=== PATIENT | male | born 1945 | race Caucasian/White ===

== ENCOUNTER → 2017-04-20 | Outpatient (CLI) | payer OTHER ==
[~2017-04-20] MED LIST: ASPIR 8181 MG PO; CO Q-10100 MG PO; FOLIC ACID 40400 MCG PO; LISINOPRIL20 MG PO; ZOCOR40 MG PO
== END ==
LOC: MRI 12:27
DX: M75.101 Unspecified rotator cuff tear or rupture of right shoulder, not specified as traumatic (principal)

== ENCOUNTER 2017-07-05 05:16 | Day surgery (SDC) | payer OTHER ==
[~2017-07-05] VITALS: Ht 182.9 cm; Wt 105.7 kg
--- NOTE | ~2017-07-05 | O ---
[facility] [place] [address] OPERATIVE REPORT Name: PEDRO FONSECA Room #: DEP [facility]#: [id number] Admission: 07/05/17 Attend Phys: Isacc Del Rio MD Discharge: 07/05/17 Date of : 49 Report #: [id number] THIS REPORT FOR: //name// CC: Isacc Tabor DATE OF SERVICE: 07/05/2017 PREOPERATIVE DIAGNOSIS: Left inguinal hernia. POSTOPERATIVE DIAGNOSES: Left indirect inguinal hernia and skin tag, left eye, right upper thigh. PROCEDURES PERFORMED: Laparoscopic properitoneal repair of left inguinal hernia with mesh and excision of skin tag, left eyelid and right thigh. ANESTHESIA: General. SURGEON: Isacc Del Rio M.D. COMPLICATIONS: None. ESTIMATED BLOOD LOSS: 5 mL. DESCRIPTION OF PROCEDURE: With the patient under general anesthesia, IV antibiotic was administered. Regalado catheter was placed. Abdomen was prepped and draped in a sterile fashion. Timeout was performed. A 0.25% Marcaine was used to anesthetize the skin left side of the umbilicus. Transverse incision was made about 2 cm. The anterior rectus sheath was identified. This was incised transversely, muscle was spread. The posterior sheath was then identified. Space between the rectus muscle and the posterior sheath was dissected using finger dissection inferiorly. Origin balloon trocar was placed through the same space. The balloon was inflated keeping the trocar in place, CO2 was administered. A 5 mm trocar was placed about 2 inches below the umbilicus under visualization into the properitoneal space. The properitoneal space was then opened up. After the anterior wall was isolated and freed, a second 5 mm trocar was placed about 2 inches below the first 5 mm trocar, slightly medial. Properitoneal space was then opened up. The inferior epigastric vessel was identified and preserved from harm. This was lifted anteriorly, the cord structures identified. The lateral wall was also opened up. An indirect hernia sac was found. No direct defect identified. The indirect hernia sac was freed without difficulty from the underlying cord and then reduced out of the canal back into the properitoneal space. The hernia sac was free from the cord all the way posteriorly. The cord structure was isolated. A small cord lipoma was also brought back in. A large size light-weight 3DMax mesh was used. This was placed in the properitoneal space, [address] [address] OPERATIVE REPORT Name: PEDRO FONSECA Room #: DEP [facility].#: [id number] Admission: 07/05/17 Attend Phys: Isacc Del Rio MD Discharge: 07/05/17 Date of : 49 Report #: [id number] opened up well. It was noted that the internal ring is fairly dilated and weakened. The mesh was placed and I moved the mesh slightly more lateral to make sure the internal ring as well support it as there was no direct defect. Mesh was tacked laterally with SorbaFix to the abdominal wall. Mesh was tacked inferiorly, inferomedially to the Delmer ligament above pubic bone. The mesh was also tacked superomedially to the rectus muscle. Mesh was held well. CO2 was evacuated. Trocars were removed. There was some intraperitoneal air that was identified. A 5 mm trocar was placed in the posterior sheath at the umbilical level under visualization with a 5 mm scope placed inside the trocar. No harm to underlying tissue. CO2 was evacuated. The anterior rectus sheath fascia defect was closed with 0 Vicryl [id number] x 2. Skin at the trocar site was closed with 5-0 PDS. Steri-Strip, Band-Aids applied. The eye skin tag was then prepped with alcohol wipe, anesthetized with 1% lidocaine with epinephrine. This was then cauterized at the base. This was discarded. Antibiotic ointment was placed over this area. The right upper thigh skin tag was also cleaned with alcohol, anesthetized with the 1% lidocaine with epinephrine. This was trimmed at the base with a scissor and the base of the skin tag was cauterized. No bleeding was identified. The patient was awakened and taken to recovery room. By: 41 09 Isacc Del Rio MD /irina
--- NOTE | ~2017-07-05 | EKG ---
[address] [address] ELECTROCARDIOGRAM REPORT Name: PEDRO FONSECA Room #: 150-6 [facility]#: [id number] Admission: 07/05/17 Attend Phys: Isacc Del Rio MD Discharge: Date of : 49 Report #: [id number] THIS REPORT FOR: //name// [facility] Test Date: 2017-07-05 Test Time: 07:30:14 Pat Name: PEDRO FONSECA Department: Room: [facility] Gender: M Glass Tube Bender: BAILEY : 1945 Requested By: Isacc Del Rio Order Number: [id number] MD: Ja Reyes Measurements Intervals [place] Rate: 66 P: 32 CA: 181 QRS: -90 QRSD: 161 T: 0 QT: 457 QTc: 479 Interpretive Statements Sinus rhythm RBBB and LAFB Baseline wander in lead(s) V4 No previous ECG available for comparison Electronically Signed On 07-05-2017 8:24:55 CDT by Ja Reyes [email or web address] <ELECTRONICALLY SIGNED> By: Ja Reyes MD, [facility] 07/05/1724 9 9 Ja Reyes MD, FACC /EPI
[~2017-07-05 05:16] MED LIST changes: +FOLIC ACID 40400 MC1 PO; -FOLIC ACID 40400 MCG PO; +VITAMIN B COMP1 EACH PO
[2017-07-05 08:41] VITALS: BP 138/97
[2017-07-05] MEDS ORDERED: NORCO 5-325 TA1 EACH PO (11:10)
[2017-07-05 11:23] VITALS: BP 138/97
== END 2017-07-05 12:10 | disposition home or self-care (01) ==
LOC: TBA 05:16 → OR 05:16
DX: K40.90 Unilateral inguinal hernia, without obstruction or gangrene, not specified as recurrent (principal); L91.8 Other hypertrophic disorders of the skin; D23.12 Other benign neoplasm of skin of left eyelid, including canthus; D23.71 Other benign neoplasm of skin of right lower limb, including hip; I10 Essential (primary) hypertension; K21.9 Gastro-esophageal reflux disease without esophagitis; Z98.41 Cataract extraction status, right eye; Z98.42 Cataract extraction status, left eye; Z98.890 Other specified postprocedural states; Z88.0 Allergy status to penicillin; Z79.899 Other long term (current) drug therapy
CPT/HCPCS: 50010; 50101; 50411; 50507; 50555; 50848; 53065; 53307; 56525; 56526; 62110; 62900; 70005